=== PATIENT | female | born 1995 | race Caucasian/White ===

== ENCOUNTER 2019-07-13 09:55 | Emergency (ER) | payer OTHER ==
[~2019-07-13] VITALS: Wt 51.3 kg
[~2019-07-13 09:55] MED LIST: HYDR-3980 PO; ONDA4TAB14 PO
[2019-07-13] MEDS ORDERED: HYDROmorphONE 1 MG/ML SYG IV STA (10:26)
[2019-07-13] MEDS ORDERED: SOD CHLORIDE 0.9% 1,000 ML IV STA (10:26)
[2019-07-13] MEDS ORDERED: ONDANSETRON 4 MG INJ IV STA (10:26)
[2019-07-13 12:24] VITALS: BP 119/98; PULSE 99; RESP 18
== END 2019-07-13 12:30 | disposition left against medical advice (07) ==
LOC: E/R 09:55
DX: K85.20 Alcohol induced acute pancreatitis without necrosis or infection (principal)
CPT/HCPCS: 36415; 76705; 80053; 81003; 81025; 83690; 84703; 85025; 96361; 96374; 96375; J1170; J2405; J7030; Z7502